=== PATIENT | male | born 1995 | race Caucasian/White ===

== ENCOUNTER 2016-12-11 11:24 | Emergency (ER) | payer MEDICAID ==
[~2016-12-11] VITALS: Ht 177.8 cm; Wt 100.0 kg
[2016-12-11 12:48] VITALS: BP 150/57
[2016-12-11] MEDS ORDERED: LIDOCAINE HCL 1% 20ML VIAL (Pyxis) INJ MC ONE (13:30)
[2016-12-11] MEDS ORDERED: CEFTRIAXONE SODIUM 1 G/VIAL IM ONE (13:30)
== END 2016-12-11 15:16 | disposition home or self-care (01) ==
LOC: ER 13:23
DX: H66.92 Otitis media, unspecified, left ear (principal); H72.92 Unspecified perforation of tympanic membrane, left ear
CPT/HCPCS: 70486; 96372; 99284; J0696; J3490; Z7610